=== PATIENT | female | born 1950 | race Two or more races ===

== ENCOUNTER 2018-07-06 12:09 | Outpatient (CLI) | payer OTHER | END 2018-07-10 12:18 | disposition home or self-care (01) | LOC: RAD 12:09 | DX: K59.09 Other constipation (principal) ==

== ENCOUNTER 2018-08-07 13:46 | Inpatient (IN) | payer OTHER ==
[2018-08-16] MEDS ORDERED: MENEST1.25 MG (13:28)
[2018-08-16] MEDS ORDERED: TOPROL XL100 MG (13:28)
[2018-08-16] MEDS ORDERED: SYNTHROID75 MCG (13:28)
[2018-08-16] MEDS ORDERED: RESTORIL30 M1 (13:29)
[2018-08-16] MEDS ORDERED: CRESTOR10 MG (13:29)
[2018-08-16] MEDS ORDERED: PROTONIX40 MG (13:29)
== END 2018-08-25 18:13 | disposition home or self-care (01) | DRG 331 ==
LOC: SURG 08-22 05:40 → O/R 08-22 05:40 → SURH 08-22 07:00 → SURG 08-22 16:03
PROVIDERS: Colon & Rectal Surgery
PROC: 0DTP4ZZ Resection of Rectum, Percutaneous Endoscopic Approach (ICD-10-PCS; 2018-08-22)
PROC: 0DJD8ZZ Inspection of Lower Intestinal Tract, Via Natural or Artificial Opening Endoscopic (ICD-10-PCS; 2018-08-22)
PROC: 0DTN4ZZ Resection of Sigmoid Colon, Percutaneous Endoscopic Approach (ICD-10-PCS; principal; 2018-08-22 07:00)
DX: K58.1 Irritable bowel syndrome with constipation (principal); K59.02 Outlet dysfunction constipation; I10 Essential (primary) hypertension; E03.8 Other specified hypothyroidism; E78.49 Other hyperlipidemia

== ENCOUNTER 2019-08-03 05:40 | Day surgery (SDC) | payer OTHER ==
[~2019-08-03 05:40] MED LIST: CRESTOR10 MG; MENEST1.25 MG; PROTONIX40 MG; RESTORIL30 M1; SYNTHROID75 MCG; TOPROL XL100 MG
== END 2019-08-03 11:25 | disposition home or self-care (01) ==
LOC: AMB-ENDOS 05:40
DX: K59.09 Other constipation (principal); K64.1 Second degree hemorrhoids

== ENCOUNTER 2024-11-12 14:55 | Outpatient (CLI) | payer OTHER | END 2024-11-12 15:00 | disposition home or self-care (01) | LOC: RAD 14:55 | PROVIDERS: ATTEND Colon & Rectal Surgery | DX: K59.09 Other constipation (principal) ==